=== PATIENT | male | born 1955 | race Native Hawaiian/Other Pacific Islander ===

== ENCOUNTER 2018-12-11 14:53 | Day surgery (SDC) | payer OTHER ==
[2018-12-11] MEDS ORDERED: Xylocaine-Mpf 2% 5 Ml Vial IJ ONE (14:54)
[2018-12-11] MEDS ORDERED: DIPRIVAN 200 MG/20 ML IV ONE (14:54)
[2018-12-11] MEDS ORDERED: Depo-Medrol 40 MG/ML IM ONE (14:54)
[2018-12-11] MEDS ORDERED: Ketamine HCl 50 MG/ML IJ ONE (14:54)
--- NOTE | 2018-12-11 16:46 | XRAY ---
Indication: Bilateral L4-S1 MBB. Intraoperative fluoroscopy was provided for 11 seconds. Single digital spot image submitted for interpretation demonstrates posterior needle tips projecting over the expected course of the left and right L4-S1 nerve roots. Correlate with intraoperative findings/report. Incidental numerous overlying surgical clips.
--- NOTE | 2018-12-11 16:49 | XRAY ---
11 seconds fluoroscopy time in surgery for bilateral L4-S1 MBB.
[2018-12-11] MEDS ORDERED: Lactated Ringers 1,000 ML IV ONE (18:07)
== END 2018-12-11 16:21 | disposition home or self-care (01) ==
LOC: SDC-PAIN 14:53
PROVIDERS: ATTEND Psychiatry & Neurology Pain Medicine
DX: M47.816 Spondylosis without myelopathy or radiculopathy, lumbar region (principal); M54.5 Low back pain; Z79.899 Other long term (current) drug therapy
CPT/HCPCS: 64493; 64494; 72020; 77002; J1030; J2704